=== PATIENT | male | born 1975 | race Caucasian/White ===

== ENCOUNTER 2017-05-12 06:43 | Inpatient (IN) | payer OTHER ==
[2017-05-12] MEDS: ONDANSETRON 4 MG INJ IV ×2 (08:08→10:38)
[2017-05-12] MEDS: HYDROmorphONE 1 MG/ML SYG IV ×5 (08:09→21:31)
[2017-05-12 08:17] LABS: ADD MAN DIFF? NO
[2017-05-12 08:18] LABS: BASOPHILS % 0.4 % (0.0-2.0); EOSINOPHILS # 0.1 10^3/ul (0.0-0.5); EOSINOPHILS % 0.9 % (0.0-7.0); HEMATOCRIT 38.9 % (42.0-52.0); HEMOGLOBIN 13.4 g/dl (14.0-18.0); LYMPHOCYTES # 2.6 10^3/ul (0.8-2.9); LYMPHOCYTES % 27.2 % (15.0-51.0); MEAN CORPUSCULAR HEMOGLOBIN 32.1 pg (29.0-33.0); MEAN CORPUSCULAR HGB CONC 34.4 g/dl (32.0-37.0); MEAN CORPUSCULAR VOLUME 93.3 fl (82.0-101.0); MEAN PLATELET VOLUME 7.9 fl (7.4-10.4); MONOCYTE # 0.6 10^3/ul (0.3-0.9); MONOCYTES % 6.8 % (0.0-11.0); NEUTROPHILS % 64.3 % (39.0-77.0); PLATELET COUNT 315 10^3/UL (140-415); RED BLOOD COUNT 4.17 10^6/ul (4.70-6.10); RED CELL DISTRIBUTION WIDTH 13.2 % (11.5-14.5)
[2017-05-12 08:18] LABS: WHITE BLOOD COUNT 9.4 10^3/ul (4.8-10.8)
[2017-05-12 08:39] LABS: ANION GAP 20 (8-16); BLOOD UREA NITROGEN 25 mg/dl (7-20); CARBON DIOXIDE 22 mmol/L (21-31); CHLORIDE 107 mmol/L (97-110); CREATININE 1.08 mg/dl (0.61-1.24); GLUCOSE 124 mg/dl (70-220); POTASSIUM 4.2 mmol/L (3.5-5.1); SODIUM 145 mmol/L (135-144)
[2017-05-12 10:24] LABS: ADD UMIC YES; UR ASCORBIC ACID 40 mg/dL (NEGATIVE); UR BILIRUBIN (Dip) NEGATIVE (NEGATIVE); UR BLOOD (Dip) 3+ mg/dL (NEGATIVE); UR CLARITY SLIGHTLY CLOUDY (CLEAR); UR COLOR YELLOW (YELLOW); UR GLUCOSE (Dip) NEGATIVE (NEGATIVE); UR KETONES (Dip) NEGATIVE (NEGATIVE); UR LEUKOCYTE ESTERASE (Dip) NEGATIVE Leu/ul (NEGATIVE); UR MUCUS FEW /HPF (NONE SEEN); UR NITRITE (Dip) NEGATIVE (NEGATIVE); UR RBC > 182 /HPF (0-5); UR TOTAL PROTEIN (Dip) 1+ mg/dl (NEGATIVE); UR UROBILINOGEN (Dip) NEGATIVE (NEGATIVE); UR WBC 3 /HPF (0-5)
[2017-05-12] MEDS ORDERED: ONDANSETRON 4 MG INJ IV ×2 (12:00→14:00)
[2017-05-12] MEDS ORDERED: ACETAMINOPHEN 325 MG TAB PO (12:00)
[2017-05-12] MEDS: SOD CHLORIDE 0.9% 1,000 ML IV ×2 (12:16→21:31)
[2017-05-12] MEDS: HYDROCODONE/APAP (7.5/325) TAB PO ×2 (17:02→21:30)
[2017-05-12 19:48] LABS: INR 0.86; PROTIME 11.8 Sec (11.9-14.9); PT RATIO 0.9
[2017-05-12] MEDS: TAMSULOSIN (SR) 0.4 MG CAP PO (21:30)
[2017-05-12] MEDS: INFLUENZA VIRUS VACCINE 0.5 ML (DISPENSING) IM* (23:59)
[2017-05-13] MEDS: PANTOPRAZOLE 40 MG INJ IV (05:26)
[2017-05-13 05:58] LABS: ADD MAN DIFF? NO
[2017-05-13 05:59] LABS: WHITE BLOOD COUNT 9.9 10^3/ul (4.8-10.8)
[2017-05-13 05:59] LABS: BASOPHILS % 0.4 % (0.0-2.0); EOSINOPHILS # 0.1 10^3/ul (0.0-0.5); EOSINOPHILS % 1.3 % (0.0-7.0); LYMPHOCYTES # 2.8 10^3/ul (0.8-2.9); LYMPHOCYTES % 28.8 % (15.0-51.0); MEAN CORPUSCULAR HEMOGLOBIN 32.1 pg (29.0-33.0); MEAN CORPUSCULAR HGB CONC 34.2 g/dl (32.0-37.0); MEAN CORPUSCULAR VOLUME 93.8 fl (82.0-101.0); MEAN PLATELET VOLUME 8.1 fl (7.4-10.4); MONOCYTES % 10.4 % (0.0-11.0); NEUTROPHIL # 5.8 10^3/ul (1.6-7.5); NEUTROPHILS % 58.6 % (39.0-77.0); PLATELET COUNT 275 10^3/UL (140-415); RED BLOOD COUNT 4.05 10^6/ul (4.70-6.10); RED CELL DISTRIBUTION WIDTH 13.3 % (11.5-14.5)
[2017-05-13 06:41] LABS: PHOSPHORUS 4.2 mg/dl (2.5-4.9)
[2017-05-13 06:41] LABS: MAGNESIUM 1.8 mg/dl (1.7-2.5)
[2017-05-13 06:51] LABS: ANION GAP 13 (8-16); BLOOD UREA NITROGEN 20 mg/dl (7-20); CALCIUM 8.6 mg/dl (8.4-10.2); CARBON DIOXIDE 27 mmol/L (21-31); CHLORIDE 104 mmol/L (97-110); CREATININE 1.33 mg/dl (0.61-1.24); GLUCOSE 108 mg/dl (70-220); POTASSIUM 4.3 mmol/L (3.5-5.1); SODIUM 140 mmol/L (135-144)
[2017-05-13] MEDS: SOD CHLORIDE 0.9% 1,000 ML IV ×3 (08:27→21:17)
[2017-05-13] MEDS: TAMSULOSIN (SR) 0.4 MG CAP PO (09:00)
[2017-05-13] MEDS: HYDROmorphONE 1 MG/ML SYG IV ×2 (11:13→23:03)
[2017-05-13] MEDS ORDERED: MIDAZOLAM 1 MG/ML 2 ML INJ (18:22)
[2017-05-13] MEDS ORDERED: PROPOFOL 40 ML (18:22)
[2017-05-13] MEDS ORDERED: CEFAZOLIN 1 GM INJ (18:53)
[2017-05-13] MEDS ORDERED: METOCLOPRAMIDE 10 MG INJ (18:53)
[2017-05-13] MEDS ORDERED: KETOROLAC 30 MG INJ (18:53)
[2017-05-13] MEDS ORDERED: ONDANSETRON 4 MG INJ (18:53)
[2017-05-13] MEDS ORDERED: DEXAMETHASONE 4 MG/ML 1 ML INJ (18:53)
[2017-05-13] MEDS ORDERED: DIPHENHYDRAMINE 50 MG INJ IV (19:00)
[2017-05-13] MEDS ORDERED: FENTAnyl 50 MCG/ML VIAL IV ×3 (19:00)
[2017-05-13] MEDS ORDERED: EPHEDrine SULFATE 50 MG/5 ML SYG IV (19:00)
[2017-05-13] MEDS ORDERED: METOCLOPRAMIDE 10 MG INJ IV (19:00)
[2017-05-13] MEDS ORDERED: ONDANSETRON 4 MG INJ IV (19:00)
[2017-05-13] MEDS ORDERED: MEPERIDINE 25 MG INJ IV (19:00)
[2017-05-13] MEDS ORDERED: KETOROLAC 30 MG INJ IV (19:00)
[2017-05-13] MEDS ORDERED: OXYCODONE/ACETAMINOPHEN (5/325) TAB PO ×2 (19:00)
[2017-05-13] MEDS ORDERED: HYDROmorphONE (0.2 MG/ML) 10ML SYG IV ×3 (19:00)
[2017-05-13] MEDS ORDERED: LABETALOL HCL 20MG INJ IV (19:00)
[2017-05-13] MEDS: LACTATED RINGER'S 1L BAG IV (19:40)
[2017-05-13] MEDS: FAMOTIDINE 20 MG INJ IV (21:17)
[2017-05-13] MEDS: HYDROCODONE/APAP (5/325) TAB PO (23:03)
[2017-05-14] MEDS: HYDROmorphONE 1 MG/ML SYG IV ×2 (01:57→05:19)
[2017-05-14] MEDS: HYDROCODONE/APAP (7.5/325) TAB PO (05:19)
[2017-05-14 08:05] LABS: ANION GAP 12 (8-16); BLOOD UREA NITROGEN 18 mg/dl (7-20); CALCIUM 8.8 mg/dl (8.4-10.2); CARBON DIOXIDE 26 mmol/L (21-31); CHLORIDE 107 mmol/L (97-110); CREATININE 1.02 mg/dl (0.61-1.24); GLUCOSE 128 mg/dl (70-220); POTASSIUM 4.3 mmol/L (3.5-5.1); SODIUM 141 mmol/L (135-144)
[2017-05-14] MEDS: SOD CHLORIDE 0.9% 1,000 ML IV ×2 (10:09→19:42)
[2017-05-14] MEDS: HYDROmorphONE 2 MG TAB PO ×2 (10:09→19:46)
[2017-05-14] MEDS: FAMOTIDINE 20 MG TAB PO (19:42)
[2017-05-15] MEDS: SOD CHLORIDE 0.9% 1,000 ML IV ×2 (00:16→10:16)
[2017-05-15] MEDS: FAMOTIDINE 20 MG TAB PO (08:26)
== END 2017-05-15 18:10 | disposition home or self-care (01) | DRG 669 ==
LOC: FTE 06:43 → MS2 11:51
PROC: 0TC78ZZ Extirpation of Matter from Left Ureter, Via Natural or Artificial Opening Endoscopic (ICD-10-PCS; principal; 2017-05-13 17:30)
PROC: 0T778DZ Dilation of Left Ureter with Intraluminal Device, Via Natural or Artificial Opening Endoscopic (ICD-10-PCS; 2017-05-13 17:30)
DX: N13.2 Hydronephrosis with renal and ureteral calculous obstruction (principal); F17.200 Nicotine dependence, unspecified, uncomplicated; K42.9 Umbilical hernia without obstruction or gangrene
CPT/HCPCS: 71045; 74018; 74176; 74430; 80048; 81001; 83735; 84100; 85025; 85610; 88305; 90686; 93005; 96374; 96375; 96376; 99285-25

== ENCOUNTER 2018-08-05 05:52 | Day surgery (SDC) | payer OTHER ==
[2018-08-05] MEDS ORDERED: LACTATED RINGER'S 1,000 ML IV (06:00)
[2018-08-05] MEDS ORDERED: SOD CHLORIDE 0.9% 1,000 ML IV (06:00)
[2018-08-05] MEDS ORDERED: CEFAZOLIN 2 GM/50 ML (PMX) 50 ML (FOR WT < 120 KG) IVPB (06:00)
[2018-08-05] MEDS ORDERED: DESFLURANE 15 MIN (07:00)
[2018-08-05] MEDS ORDERED: BUPIVACAINE 0.5%/EPI (SDV) 30 ML INJ ×2 (07:02→09:26)
[2018-08-05] MEDS ORDERED: POLYMYXIN/BACITRACIN 1L IRRIG (07:02)
[2018-08-05 07:03] LABS: ADD MAN DIFF? NO
[2018-08-05 07:17] LABS: BASOPHILS % 0.6 % (0.0-2.0); EOSINOPHILS # 0.3 10^3/ul (0.0-0.5); HEMATOCRIT 44.8 % (42.0-52.0); HEMOGLOBIN 14.9 g/dl (14.0-18.0); LYMPHOCYTES # 3.6 10^3/ul (0.8-2.9); LYMPHOCYTES % 53.2 % (15.0-51.0); MEAN CORPUSCULAR HEMOGLOBIN 31.2 pg (29.0-33.0); MEAN CORPUSCULAR HGB CONC 33.3 g/dl (32.0-37.0); MEAN CORPUSCULAR VOLUME 93.7 fl (82.0-101.0); MEAN PLATELET VOLUME 7.9 fl (7.4-10.4); MONOCYTE # 0.6 10^3/ul (0.3-0.9); MONOCYTES % 9.3 % (0.0-11.0); NEUTROPHIL # 2.2 10^3/ul (1.6-7.5); NEUTROPHILS % 32.5 % (39.0-77.0); PLATELET COUNT 333 10^3/UL (140-415); RED BLOOD COUNT 4.78 10^6/ul (4.70-6.10); RED CELL DISTRIBUTION WIDTH 13.3 % (11.5-14.5)
[2018-08-05 07:17] LABS: WHITE BLOOD COUNT 6.8 10^3/ul (4.8-10.8)
[2018-08-05 07:26] LABS: ALANINE AMINOTRANSFERASE 47 IU/L (13-69); ALBUMIN 4.7 g/dl (3.3-4.9); ALBUMIN/GLOBULIN RATIO 1.23; ALKALINE PHOSPHATASE 67 IU/L (42-121); ANION GAP 11 (5-13); ASPARTATE AMINO TRANSFERASE 34 IU/L (15-46); BILIRUBIN,INDIRECT 0.2 mg/dl (0-1.1); BILIRUBIN,TOTAL 0.2 mg/dl (0.2-1.3); BLOOD UREA NITROGEN 16 mg/dl (7-20); CALCIUM 9.8 mg/dl (8.4-10.2); CARBON DIOXIDE 27 mmol/L (21-31); CHLORIDE 105 mmol/L (97-110); CREATININE 0.92 mg/dl (0.61-1.24); Estimated GFR > 60 mL/min (>60); GLUCOSE 107 mg/dl (70-220); POTASSIUM 4.5 mmol/L (3.5-5.1); SODIUM 143 mmol/L (135-144); TOTAL PROTEIN 8.5 g/dl (6.1-8.1)
[2018-08-05 07:28] LABS: INR 0.83; PROTIME 11.5 Sec (11.9-14.9); PT RATIO 0.9
[2018-08-05 07:29] LABS: PARTIAL THROMBOPLASTIN TIME 31.2 Sec (23.0-35.0)
[2018-08-05] MEDS ORDERED: HYDROmorphONE 1 MG/5 ML IV SYRINGE IV ×2 (07:30)
[2018-08-05] MEDS ORDERED: DIPHENHYDRAMINE 50 MG INJ IV (07:30)
[2018-08-05] MEDS ORDERED: IPRATROPIUM (NEB) 0.5 MG/2.5 ML AMP HHN (07:30)
[2018-08-05] MEDS ORDERED: ROCURONIUM 50 MG INJ (07:30)
[2018-08-05] MEDS ORDERED: OXYCODONE/ACETAMINOPHEN (5/325) TAB PO (07:30)
[2018-08-05] MEDS ORDERED: PROPOFOL 20 ML (07:30)
[2018-08-05] MEDS ORDERED: TRIMETHOBENZAMIDE 100 MG/ML VIAL IM (07:30)
[2018-08-05] MEDS ORDERED: FENTAnyl 50 MCG/ML VIAL IV ×2 (07:30)
[2018-08-05] MEDS ORDERED: EPHEDrine SULFATE 50 MG/5 ML SYG IV (07:30)
[2018-08-05] MEDS ORDERED: MIDAZOLAM 1 MG/ML 2 ML INJ IV (07:30)
[2018-08-05] MEDS ORDERED: MEPERIDINE 25 MG INJ IV (07:30)
[2018-08-05] MEDS ORDERED: GLYCOPYRROLATE 0.4 MG INJ (07:30)
[2018-08-05] MEDS ORDERED: ALBUTEROL 0.083% (NEB) 2.5 MG/3 ML AMP HHN (07:30)
[2018-08-05] MEDS ORDERED: hydrALAzine 20 MG INJ IV (07:30)
[2018-08-05] MEDS ORDERED: CEFAZOLIN 1 GM INJ (07:30)
[2018-08-05] MEDS ORDERED: NEOSTIGMINE 3 MG/3 ML SYRINGE (07:30)
[2018-08-05] MEDS ORDERED: LABETALOL HCL 20MG INJ IV (07:30)
[2018-08-05] MEDS ORDERED: DEXAMETHASONE 4 MG/ML 5 ML INJ (07:32)
[2018-08-05] MEDS ORDERED: MIDAZOLAM 1 MG/ML 2 ML INJ (07:32)
[2018-08-05] MEDS ORDERED: FENTAnyl 50 MCG/ML VIAL ×2 (07:32→08:27)
[2018-08-05] MEDS ORDERED: ONDANSETRON 4 MG INJ (07:32)
[2018-08-05] MEDS ORDERED: ROPIVACAINE 0.5 % 30 ML VIAL (07:36)
[2018-08-05] MEDS: LIDOCAINE 1% (MPF) 30 ML INJ (08:28)
[2018-08-05] MEDS: BUPIVACAINE 0.5% (SDV) 30 ML INJ (08:28)
[2018-08-05] MEDS ORDERED: SUGAMMADEX SODIUM 200 MG/2 ML VIAL IV (09:35)
[2018-08-05] MEDS: FENTAnyl 50 MCG/ML VIAL IV (10:32)
[2018-08-05] MEDS: ONDANSETRON 4 MG INJ IV (10:33)
[2018-08-05] MEDS: HYDROmorphONE 1 MG/5 ML IV SYRINGE IV (10:54)
[2018-08-05] MEDS: OXYCODONE/ACETAMINOPHEN (5/325) TAB PO (11:58)
== END 2018-08-05 12:10 | disposition home or self-care (01) ==
LOC: SDS 05:52
DX: K42.0 Umbilical hernia with obstruction, without gangrene (principal)
CPT/HCPCS: 49653; 71045; 80053; 85025; 85610; 85730; 86850; 86900; 86901; 93005